=== PATIENT | male | born 1980 | race Caucasian/White ===

== ENCOUNTER 2018-10-10 12:10 | Emergency (ER) | payer SELFPAY ==
--- NOTE | 2018-10-10 12:56 | ED ---
Upper Extremity Pain - HPI Summary HPI Summary: This pt is a 38 y/[facility] left middle finger and right ring finger pain s/p falling off a swing and landing on hands today. Pt reports he was on a swing when his wallet got caught on the swings and he fell on the ground. He notes he landed on his hands and injured two fingers. Pt states his left middle finger and right ring finger look deformed. His pain is aggravated with movement of these fingers and alleviated with rest. Denies any PMHx. - History of Current Complaint Chief Complaint: EDExtremityUpper Stated Complaint: FINGER INJURY Time Seen by Provider: 10/10/18 12:30 Hx Obtained From: Patient Mechanism Of Injury: Fall From Height Of: - a swing Onset/Duration: Started Hours Ago, Still Present Timing: Lasting Hours Severity Currently: Mild Pain Location: Finger - left middle finger and right ring finger Aggravating Factor(s): Movement Alleviating Factor(s): Rest Associated Signs & Symptoms: Negative: Swelling, Redness, Bruising, Fever, Chest Pain, SOB, Nausea, Vomiting Related History: Other: - s/p falling off a swing and landing on hands - Allergies/Home Medications Allergies/Adverse Reactions: Allergies Allergy/AdvReac Type Severity Reaction Status Date / Time No Known Allergies Allergy Verified 10/10/18 12:13 Home Medications: Home Medications NK [No Home Medications Reported] 10/10/18 [History Confirmed 10/10/18] PMH/Surg Hx/FS Hx/Imm Hx Endocrine/Hematology History: Denies: Hx Diabetes Cardiovascular History: Denies: Hx Hypertension Infectious Disease History: No Infectious Disease History: Denies: Traveled Outside the [place] in Last 30 Days - Family History Known Family History: Negative: Cardiac Disease, Hypertension, Diabetes - Social History Alcohol Use: None Substance Use Type: Reports: None Smoking Status (MU): Never Smoked Tobacco Review of Systems Negative: Fever, Chills Cardiovascular: Negative Respiratory: Negative Gastrointestinal: Negative Musculoskeletal: Other - POSITIVE: left middle finger pain and right ring finger pain Skin: Negative All Other Systems Reviewed And Are Negative: Yes Physical Exam - Summary Physical Exam Summary: VITAL SIGNS: Reviewed. GENERAL: Patient is a well-developed and nourished male who is lying comfortable in the stretcher. Patient is not in any acute respiratory distress. HEAD AND FACE: No signs of trauma. No ecchymosis, hematomas or skull depressions. No sinus tenderness. EYES: PERRLA, EOMI x 2, No injected conjunctiva, no nystagmus. EARS: Hearing grossly intact. Ear canals and tympanic membranes are within normal limits. MOUTH: Oropharynx within normal limits. NECK: Supple, trachea is midline, no adenopathy, no JVD, no carotid bruit, no c- spine tenderness, neck with full ROM. CHEST: Symmetric, no tenderness at palpation LUNGS: Clear to auscultation bilaterally. No wheezing or crackles. CVS: Regular rate and rhythm, S1 and S2 present, no murmurs or gallops appreciated. ABDOMEN: Soft, non-tender. No signs of distention. No rebound, no guarding, and no masses palpated. Bowel sounds are normal. EXTREMITIES: Left hand: distal phalanx of left middle finger is slightly deformed. NEURO: Alert and oriented x 3. No acute neurological deficits. Speech is normal and follows commands. SKIN: Dry and warm Triage Information Reviewed: Yes Vital Signs On Initial Exam: Initial Vitals Temp Pulse Resp BP Pulse Ox 98.0 F 71 16 144/86 99 10/10/18 12:13 10/10/18 12:13 10/10/18 12:13 10/10/18 12:13 10/10/18 12:13 Vital Signs Reviewed: Yes Procedures - Splinting Left 3rd Digit Location: left third digit middle phalanx Splint: Finger splint Pre-Proc Neuro Vasc Exam: normal Post-Proc Neuro Vasc Exam: normal Right 4th Digit Location: right fourth digit middle phalanx Splint: Finger splint Pre-Proc Neuro Vasc Exam: normal Post-Proc Neuro Vasc Exam: normal Diagnostics - Vital Signs Vital Signs Temp Pulse Resp BP Pulse Ox 10/10/18 12:13 98.0 F 71 16 144/86 99 - Laboratory Lab Statement: Any lab studies that have been ordered have been reviewed, and results considered in the medical decision making process. - Radiology Left middle finger XR Radiology Interpretation Completed By: Radiologist Summary of Radiographic Findings: IMPRESSION: Oblique fracture of the middle phalanx of the third digit of the left hand. Dr. Kuhn has reviewed this report. Right ring finger XR Radiology Interpretation Completed By: Radiologist Summary of Radiographic Findings: IMPRESSION: Nondisplaced fracture of the middle phalanx of the fourth digit of the right hand. Dr. Kuhn has reviewed this report. Re-Evaluation - Re-Evaluation First Eval Re-Evaluation Time: 13:34 Comment: Placing splints on both fractured fingers. He will be discharged home with follow up from ortho. Course/Dx - Course Assessment/Plan: Pt is a 38 y/o male who presents to the ED with left middle finger and right ring finger pain s/p falling off a swing and landing on his hands today. Pt reports he was on a swing when his wallet got caught on the swings and he fell on the ground. He notes he landed on his hands and injured two fingers. Pt states his left middle finger and right ring finger look deformed. His pain is aggravated with movement of these fingers and alleviated with rest. Right ring finger XR shows nondisplaced fracture of the middle phalanx of the fourth digit of the right hand. Left middle finger XR shows oblique fracture of the middle phalanx of the third digit of the left hand. Finger splints were placed on both left middle finger and right ring finger. Pt is neurovascular intact pre and post both splint procedures. Pt will be discharged home with follow up from orthopedics in 2-3 days. He was given instructions to return to the ED for any worsening or new symptoms. - Diagnoses Provider Diagnoses: Nondisplaced fracture of middle phalanx of right ring finger, Fracture of middle phalanx of left middle finger Discharge - Sign-Out/Discharge Documenting (check all that apply): Patient Departure - Discharge home Patient Received Moderate/Deep Sedation with Procedure: No - Discharge Plan Condition: Stable Disposition: HOME Patient Education Materials: Finger Fracture (ED) Referrals: [facility] [Outside] Diego Spence MD [Medical Doctor] - Additional Instructions: FOLLOW UP WITH DR. SPENCE, ORTHOPEDIST, IN 2-3 DAYS. RETURN TO THE ED FOR ANY NEW OR WORSENING SYMPTOMS. - Attestation Statements Document Initiated by Scribe: Yes Documenting Scribe: Vilma Melchor Provider For Whom Scribe is Documenting (Include Credential): Ricky Kuhn MD Scribe Attestation: Vilma Diallo, scribed for Ricky Kuhn MD on 10/10/18 at 1334. Status of Scribe Document: Viewed
[2018-10-10 13:59] VITALS: BP 133/102
== END 2018-10-10 13:58 | disposition home or self-care (01) ==
LOC: ED 12:10
DX: S62.654A Nondisplaced fracture of middle phalanx of right ring finger, initial encounter for closed fracture (principal); S62.623A Displaced fracture of middle phalanx of left middle finger, initial encounter for closed fracture; W09.1XXA Fall from playground swing, initial encounter
CPT/HCPCS: 73140; 99282